=== PATIENT | male | born 1955 | race Caucasian/White ===

== ENCOUNTER 2020-02-20 12:42 | Outpatient (REF) | payer MEDICARE, SELFPAY | END 2020-02-20 12:43 | disposition home or self-care (01) | LOC: HO.LAB 12:42 | PROVIDERS: Referring Provider Physical Medicine & Rehabilitation; Visit Provider Anesthesiology | DX: Z86.14 Personal history of Methicillin resistant Staphylococcus aureus infection (principal) | CPT/HCPCS: 87040; 87086; 99202 ==

== ENCOUNTER 2020-02-26 11:07 | Outpatient (REF) | payer MEDICARE, SELFPAY ==
[2020-02-26 12:23] LABS: Alanine Aminotransferase 37 U/L (0-40); Albumin Level 4.3 g/dL (3.5-5.0); Alkaline Phosphatase 80 U/L (39-117); Anion Gap 17 (12-20); Aspartate Amino Transferase 31 U/L (5-37); Bilirubin Total 0.6 mg/dL (0.0-1.0); Blood Urea Nitrogen 16 mg/dL (9-16); Calcium 9.3 mg/dL (8.4-10.2); Carbon Dioxide 25 mmol/L (22-29); Chloride 102 mmol/L (96-108); Estimated Glomerular Filt Rate > 60; Glucose Random 202 mg/dL (60-115); Sodium 139 mmol/L (135-145); Total Protein 7.6 g/dL (6.5-8.0)
[2020-02-26 12:44] LABS: T4 Thyroxine 4.8 ug/dL (4.5-12.0); Thyroid Stimulating Hormone 0.83 uIU/mL (0.32-4.0)
[2020-02-26 12:55] LABS: Folate > 20.0 ng/mL (> or = 4.0); Vitamin B12 875 pg/mL (200-900)
== END 2020-02-26 11:08 | disposition home or self-care (01) ==
LOC: HO.LAB 11:07
PROVIDERS: PCP Internal Medicine; Visit Provider Psychiatry & Neurology Neurology
DX: G31.84 Mild cognitive impairment of uncertain or unknown etiology (principal)
CPT/HCPCS: 36415; 80053; 82607; 82746; 84436; 84443

== ENCOUNTER 2020-03-07 14:14 | Outpatient (REF) | payer MEDICARE, SELFPAY ==
--- NOTE | 2020-03-07 14:16 | MR_ITS ---
EXAMINATION: UNENHANCED MRI OF THE BRAIN CLINICAL INFORMATION: Microvascular disease, vascular dementia. COMPARISON: None TECHNIQUE: Routine unenhanced MRI of the brain. FINDINGS: Mild patchy T2 hyperintensities are present within the ventral hoda. Mild number scattered supratentorial subcortical and periventricular white matter T2 hyperintensities are noted. A 7 mm focal T2 hyperintensity with minimal central encephalomalacia is present in the right flanagan radiata abutting the superior margin of the right lentiform nucleus suspicious for a small chronic infarct. No disproportionate prominence of the temporal horns of the lateral ventricles is noted to specifically suggest prominent hippocampal volume loss. Prominence of the sylvian fissures is noted which qualitatively is out of proportion to the overall degree of sulcal prominence. Qualitative sulcal prominence in the frontal lobes is noted relative to the occipital and parietal lobes (for example, series 6 image 15). The cervicomedullary junction cerebellar tonsils are normal in configuration. No suspicious marrow abnormalities are identified. Normal flow-related signal intensity is identified in the major intrarenal vessels and dural sinuses. Mild mucosal thickening and retained secretions are noted within the frontal sinuses and scattered ethmoid air cells. Minimal mucosal thickening and/or retained secretions are noted within the left maxillary sinus. No mastoid effusions are visualized. MR/MR head/brain wo con IMPRESSION: 1. Qualitatively disproportional prominence of the frontoinsular subarachnoid spaces. This finding could represent findings related to generalized parenchymal volume loss of the brain though in the correct clinical setting this finding is suspicious for neurodegenerative changes related to frontotemporal dementia. No prominence of the temporal horns of the lateral ventricles to suggest underlying hippocampal degeneration in the setting of Alzheimer's type neurodegeneration changes. 2. Mild white matter chronic small vessel ischemic disease. Findings do not have the appearance of MRI changes typically seen in the setting of vascular dementia. Additionally, a focal subcentimeter chronic infarct is noted in the right flanagan radiata.
== END 2020-03-07 14:15 | disposition home or self-care (01) ==
LOC: HO.MRI 14:14
PROVIDERS: Visit Provider Psychiatry & Neurology Neurology
DX: I67.9 Cerebrovascular disease, unspecified (principal); F01.50 Vascular dementia, unspecified severity, without behavioral disturbance, psychotic disturbance, mood disturbance, and anxiety
CPT/HCPCS: 70551

== ENCOUNTER → 2020-03-20 16:21 | Outpatient (BNVA) | payer MEDICARE, SELFPAY | PROVIDERS: PCP Internal Medicine; Visit Provider Anesthesiology | DX: M96.1 Postlaminectomy syndrome, not elsewhere classified (principal); M54.5 Low back pain; M48.03 Spinal stenosis, cervicothoracic region; Z86.14 Personal history of Methicillin resistant Staphylococcus aureus infection | CPT/HCPCS: 99212 ==

== ENCOUNTER 2020-06-25 10:51 | Outpatient (REF) | payer MEDICARE, SELFPAY | END 2020-06-25 10:52 | disposition home or self-care (01) | LOC: CF 10:51 | PROVIDERS: Visit Provider Anesthesiology | DX: Z86.14 Personal history of Methicillin resistant Staphylococcus aureus infection (principal) | CPT/HCPCS: 87081 ==

== ENCOUNTER 2020-07-22 12:50 | Emergency (ER) | payer MEDICARE, SELFPAY | END 2020-07-22 14:00 | disposition left against medical advice (07) | PROVIDERS: Emergency Provider Emergency Medicine | DX: R61 Generalized hyperhidrosis (principal) ==

== ENCOUNTER → 2020-12-08 16:25 | Outpatient (BNVA) | payer MEDICARE, SELFPAY | PROVIDERS: Visit Provider Anesthesiology | DX: M96.1 Postlaminectomy syndrome, not elsewhere classified (principal); M54.50 Low back pain, unspecified; M48.03 Spinal stenosis, cervicothoracic region; Z86.14 Personal history of Methicillin resistant Staphylococcus aureus infection | CPT/HCPCS: Q3014 ==

== ENCOUNTER 2020-12-12 09:44 | Day surgery (SDC) | payer MEDICARE, SELFPAY ==
[2020-12-09 09:28] VITALS: BMI 27.9
--- NOTE | 2020-12-11 14:15 | P.CONAN_ITS ---
Documented by User: Laura Islas NP 12/11/20 14:18 HPI - Anesthesia Eval Consult details Narrative: 65yo M for Lumbar Spinal Cord Stimulation Trial Chronic opioids PMFSH Active Problems Active Problems: All Active Problems (Updated 12/09/20 @ 09:33 by Martina Morel, RN) Spinal stenosis of cervicothoracic region (Acute) Low back pain (Acute) Postlaminectomy syndrome (Acute) Hx MRSA infection (Acute) Past Medical History Medical History (Updated 12/09/20 @ 09:33 by Martina Morel, RN) Back pain COVID-19 vaccine series completed Diabetic neuropathy Essential hypertension Former smoker Frontotemporal lobar degeneration Gout Hepatomegaly History of alcohol abuse History of amputation of toe Hx MRSA infection Hyperlipemia Low back pain MCI (mild cognitive impairment) with memory loss On beta glenn at home Osteoarthritis Osteomyelitis of lumbar spine Postlaminectomy syndrome PVD (peripheral vascular disease) Spinal stenosis Spinal stenosis of cervicothoracic region Type 2 diabetes mellitus Ulcer of left foot Vitamin D deficiency Surgical History Surgical History (Updated 12/08/20 @ 14:23 by Martina Morel RN) History of back surgery History of lumbar laminectomy History of total left hip arthroplasty History of transmetatarsal amputation of left foot Social History Social History Are you a primary resident care aide to a significant other at home: No Do you presently have visiting nurse or other home services: No (had VNA for Rx Foot ulcer) Patient Tobacco Use Status: Former Tobacco user Quit Date: years ago Tobacco use type: Cigarette Use of substances other than those prescribed or required for medical reasons: No Substance Use Type Other:: Rx marijuana- 2 daily Substance Use Frequency: Daily Have you been hit, kicked, punched, or otherwise hurt by someone within the past year? If so, by whom?: No Are you DNR?: No Advance Directives: No Advance Directives Information Provided: No Advance Directives on File: No Recently lost weight without trying: Yes How much weight loss: 2-13 pounds Eating poorly because of decreased appetite: No Nutrition screen score: 3 Poor oral hygiene: No (Full dentures) Meds Allergies Allergy/AdvReac Type Severity Reaction Status Date / Time No Known Allergies Allergy Verified 12/08/20 16:28 Home Medications Medication Instructions Recorded Confirmed Last Taken Type atorvastatin 40 mg tablet 40 mg PO DAILY 02/20/20 12/08/20 Unknown History diazepam 10 mg tablet 10 mg PO BEDTIME PRN 02/20/20 12/08/20 Unknown History gabapentin 600 mg tablet 600 mg PO TID 02/20/20 12/08/20 Unknown History meloxicam 15 mg tablet 15 mg PO DAILY 02/20/20 12/08/20 Unknown History metoprolol succinate 50 mg 50 mg PO DAILY 02/20/20 12/08/20 Unknown History tablet,extended release 24 hr morphine 30 mg immediate release 30 mg PO 5XD PRN 02/20/20 12/08/20 Unknown History tablet morphine 30 mg tablet,extended 30 mg PO TID 02/20/20 12/08/20 Unknown History release amlodipine 5 mg tablet 1 tab PO DAILY 12/08/20 12/08/20 Unknown History bupropion HCl 150 mg tablet,12 hr 1 tab PO BID 12/08/20 12/08/20 Unknown History sustained-release donepezil 10 mg tablet 1 tab PO DAILY 12/08/20 12/08/20 Unknown History insulin aspart U-100 100 unit/mL SUBCUT DIRECTED 12/08/20 Unknown History subcutaneous solution (Novolog U-100 Insulin aspart) insulin degludec 200 unit/mL (3 12 unit SUBCUT BID 12/08/20 12/08/20 Unknown History mL) subcutaneous pen (Tresiba FlexTouch U-200 insulin) memantine 10 mg tablet 1 tab PO BID 12/08/20 12/08/20 Unknown History metformin 500 mg tablet,extended 1 tab PO DAILY 12/08/20 12/08/20 Unknown History release 24 hr Exam Exam Date and Time: December 11, 2020 1415 Height,Weight and Vital Signs: Height 5 ft 6 in Weight 78.471 kg Pertinent Lab Results Pertinent Lab Results: Laboratory Tests 02/26/20 11:20 Sodium 139 Potassium 5.0 Chloride 102 Carbon Dioxide 25 BUN 16 Creatinine 0.96 Estimated GFR > 60 Total Bilirubin 0.6 AST 31 ALT 37 Alkaline Phosphatase 80 Total Protein 7.6 Albumin 4.3 Assessment and Plan Assessment Anesthesia Assessment: Chart Reviewed Documented by User: Roberta North MD 12/12/20 10:51 COUNTS INCLUDE 234 BEDS AT THE [facility] Past Medical History Medical History (Updated 12/09/20 @ 09:33 by Martina Morel, RN) Back pain COVID-19 vaccine series completed Diabetic neuropathy Essential hypertension Former smoker Frontotemporal lobar degeneration Gout Hepatomegaly History of alcohol abuse History of amputation of toe Hx MRSA infection Hyperlipemia Low back pain MCI (mild cognitive impairment) with memory loss On beta glenn at home Osteoarthritis Osteomyelitis of lumbar spine Postlaminectomy syndrome PVD (peripheral vascular disease) Spinal stenosis Spinal stenosis of cervicothoracic region Type 2 diabetes mellitus Ulcer of left foot Vitamin D deficiency Surgical History Surgical History (Updated 12/08/20 @ 14:23 by Martina Morel, RN) History of back surgery History of lumbar laminectomy History of total left hip arthroplasty History of transmetatarsal amputation of left foot Social History Social History Are you a primary resident care aide to a significant other at home: No Do you presently have visiting nurse or other home services: No (had VNA for Rx Foot ulcer) Patient Tobacco Use Status: Former Tobacco user Quit Date: years ago Tobacco use type: Cigarette Use of substances other than those prescribed or required for medical reasons: No Substance Use Type Other:: Rx marijuana- 2 daily Substance Use Frequency: Daily Have you been hit, kicked, punched, or otherwise hurt by someone within the past year? If so, by whom?: No Are you DNR?: No Advance Directives: No Advance Directives Information Provided: No Advance Directives on File: No Recently lost weight without trying: Yes How much weight loss: 2-13 pounds Eating poorly because of decreased appetite: No Nutrition screen score: 3 Poor oral hygiene: No (Full dentures) Meds Allergies Allergy/AdvReac Type Severity Reaction Status Date / Time No Known Allergies Allergy Verified 12/08/20 16:28 Home Medications Medication Instructions Recorded Confirmed Last Taken Type atorvastatin 40 mg tablet 40 mg PO DAILY 02/20/20 12/08/20 Unknown History diazepam 10 mg tablet 10 mg PO BEDTIME PRN 02/20/20 12/08/20 Unknown History gabapentin 600 mg tablet 600 mg PO TID 02/20/20 12/08/20 Unknown History meloxicam 15 mg tablet 15 mg PO DAILY 02/20/20 12/08/20 Unknown History metoprolol succinate 50 mg 50 mg PO DAILY 02/20/20 12/08/20 Unknown History tablet,extended release 24 hr morphine 30 mg immediate release 30 mg PO 5XD PRN 02/20/20 12/08/20 Unknown Hi story tablet morphine 30 mg tablet,extended 30 mg PO TID 02/20/20 12/08/20 Unknown History release amlodipine 5 mg tablet 1 tab PO DAILY 12/08/20 12/08/20 Unknown History bupropion HCl 150 mg tablet,12 hr 1 tab PO BID 12/08/20 12/08/20 Unknown History sustained-release donepezil 10 mg tablet 1 tab PO DAILY 12/08/20 12/08/20 Unknown History insulin aspart U-100 100 unit/mL SUBCUT DIRECTED 12/08/20 Unknown History subcutaneous solution (Novolog U-100 Insulin aspart) insulin degludec 200 unit/mL (3 12 unit SUBCUT BID 12/08/20 12/08/20 Unknown History mL) subcutaneous pen (Tresiba FlexTouch U-200 insulin) memantine 10 mg tablet 1 tab PO BID 12/08/20 12/08/20 Unknown History metformin 500 mg tablet,extended 1 tab PO DAILY 12/08/20 12/08/20 Unknown History release 24 hr Exam Airway Mallampati Class: II TM Dist: >3cm Neck ROM: Full
[2020-12-12] VITALS (22 sets, daily range): BP systolic 111–162; BP diastolic 61–97; PULSE 47–65; RESP 10–18; TEMP 36.3–36.9; O2SAT 95–100
--- NOTE | ~2020-12-12 | FL_ITS ---
EXAMINATION: XR FLUOROSCOPY WITH IMAGES CLINICAL INFORMATION: Spinal stimulator. COMPARISON: None. TECHNIQUE: Fluoroscopy performed by Dr. Michael Manuel. Fluoroscopy time: 3.7 minutes DAP: 19.8 mGycm2 Images: 2 FINDINGS: 2 lateral images of thoracic spine reveal posterior epidural thoracic stimulator spanning three vertebral heights. There is mild ventral spondylosis in the lower dorsal spine. No visible fracture or lytic process seen. FL/FL guidance in OR IMPRESSION: Fluoroscopy was provided to Dr. Manuel for spinal stimulator insertion.
--- NOTE | ~2020-12-12 | CT_ITS ---
EXAMINATION: CT LUMBAR SPINE WITHOUT CONTRAST CLINICAL INFORMATION: Possible spinal cord injury following a epidural stimulator implant. COMPARISON: None TECHNIQUE: Axial 2 mm thin and reformatted 2 mm thin sagittal coronal images of thoracolumbar spine were obtained extending from mid thoracic spine to the mid sacral spine. This CT examination was performed using dose optimization techniques as appropriate, variously including the following: *Automated exposure control *Adjustment of mA and/or kV according to patient size (this includes techniques or standardized protocols for targeted exams where dose is matched to indication/reason for exam; i.e. extremities or head) *Use of iterative reconstruction technique DLP; 1281 mGy-cm FINDINGS: On sagittal reconstructed images the thoracic spine vertebral heights and alignment is preserved. The L2 and L3 vertebra appears fused. No acute fracture seen. There are degenerative disc changes virtually at every disc level with moderate ventral spondylosis in lower dorsal and lumbar spine. There is a solitary posterior epidural stimulator inserted at T11-T12 disc level with no hematoma or mass effect seen. There is no compromise of the spinal canal at the T11-T12 or the T12-L1 disc level. There is wide laminectomy L5 and L4 vertebra. At L2-L3 disc level there is a moderate hypertrophic bony extension or spur into the spinal canal resulting in mild to moderate canal stenosis. At L1-L2 disc level there is moderate canal stenosis from posterior osteophyte as well. The neural foramina are mildly narrowed bilaterally at these 2 disc levels. Rest of the disc levels are unremarkable without spinal canal stenosis. There is severe right and moderate left facet arthropathy at L5-S1 moderate L4-L5 disc levels. There is minimal bilateral atelectatic changes or scarring in both lower lobes. CT/CT lumbar spine wo con IMPRESSION: There is posterior epidural spinal stimulator insertion at the T11-T12 disc level with no surrounding hematoma or spinal canal stenosis seen. The thecal sac is capacious in the lower thoracic spine. There is a wide laminectomy L4-L5 vertebra with no significant major spinal canal stenosis. There is moderate spinal canal stenosis at the L2-L3 and 11-2 disc levels from posterior endplate spurring. There is diffuse L2 and L3 vertebra. No acute fracture seen except for moderate spondylosis and endplate changes throughout the spine. Results were discussed with Dr. Barreto at 5:00 PM.
--- NOTE | 2020-12-12 10:53 | P.CONAN_ITS ---
[facility] Active Problems Active Problems: All Active Problems (Updated 12/09/20 @ 09:33 by Martina juárez, RN) Spinal stenosis of cervicothoracic region (Acute) Low back pain (Acute) Postlaminectomy syndrome (Acute) Hx MRSA infection (Acute) Past Medical History Medical History (Updated 12/09/20 @ 09:33 by Martina Morel, RN) Back pain COVID-19 vaccine series completed Diabetic neuropathy Essential hypertension Former smoker Frontotemporal lobar degeneration Gout Hepatomegaly History of alcohol abuse History of amputation of toe Hx MRSA infection Hyperlipemia Low back pain MCI (mild cognitive impairment) with memory loss On beta glenn at home Osteoarthritis Osteomyelitis of lumbar spine Postlaminectomy syndrome PVD (peripheral vascular disease) Spinal stenosis Spinal stenosis of cervicothoracic region Type 2 diabetes mellitus Ulcer of left foot Vitamin D deficiency Surgical History Surgical History (Updated 12/08/20 @ 14:23 by Martina Morel, RN) History of back surgery History of lumbar laminectomy History of total left hip arthroplasty History of transmetatarsal amputation of left foot Social History Social History Are you a primary managed care coordinator to a significant other at home: No Do you presently have visiting nurse or other home services: No (had VNA for Rx Foot ulcer) Patient Tobacco Use Status: Former Tobacco user Quit Date: years ago Tobacco use type: Cigarette Use of substances other than those prescribed or required for medical reasons: No Substance Use Type Other:: Rx marijuana- 2 daily Substance Use Frequency: Daily Have you been hit, kicked, punched, or otherwise hurt by someone within the past year? If so, by whom?: No Are you DNR?: No Advance Directives: No Advance Directives Information Provided: No Advance Directives on File: No Recently lost weight without trying: Yes How much weight loss: 2-13 pounds Eating poorly because of decreased appetite: No Nutrition screen score: 3 Poor oral hygiene: No (Full dentures) Meds Allergies Allergy/AdvReac Type Severity Reaction Status Date / Time No Known Allergies Allergy Verified 12/08/20 16:28 Home Medications Medication Instructions Recorded Confirmed Last Taken Type atorvastatin 40 mg tablet 40 mg PO DAILY 02/20/20 12/08/20 Unknown History diazepam 10 mg tablet 10 mg PO BEDTIME PRN 02/20/20 12/08/20 Unknown History gabapentin 600 mg tablet 600 mg PO TID 02/20/20 12/08/20 Unknown History meloxicam 15 mg tablet 15 mg PO DAILY 02/20/20 12/08/20 Unknown History metoprolol succinate 50 mg 50 mg PO DAILY 02/20/20 12/08/20 Unknown History tablet,extended release 24 hr morphine 30 mg immediate release 30 mg PO 5XD PRN 02/20/20 12/08/20 Unknown History tablet morphine 30 mg tablet,extended 30 mg PO TID 02/20/20 12/08/20 Unknown History release amlodipine 5 mg tablet 1 tab PO DAILY 12/08/20 12/08/20 Unknown History bupropion HCl 150 mg tablet,12 hr 1 tab PO BID 12/08/20 12/08/20 Unknown History sustained-release donepezil 10 mg tablet 1 tab PO DAILY 12/08/20 12/08/20 Unknown History insulin aspart U-100 100 unit/mL SUBCUT DIRECTED 12/08/20 Unknown History subcutaneous solution (Novolog U-100 Insulin aspart) insulin degludec 200 unit/mL (3 12 unit SUBCUT BID 12/08/20 12/08/20 Unknown History mL) subcutaneous pen (Tresiba FlexTouch U-200 insulin) memantine 10 mg tablet 1 tab PO BID 12/08/20 12/08/20 Unknown History metformin 500 mg tablet,extended 1 tab PO DAILY 12/08/20 12/08/20 Unknown History release 24 hr Exam Exam Date and Time: December 12, 2020 1053 Height,Weight and Vital Signs: Height 5 ft 6 in Weight 78.471 kg Airway Mallampati Class: II TM Dist: >3cm Neck ROM: Full Denture: Upper and Lower
--- NOTE | 2020-12-12 11:03 | P.OP_ITS ---
Operative Note Operative Note Date of Service: 12/12/20 Narrative: Ga is very pleasant 65 years old gentleman who came today into the operating room for trial of spinal cord stimulator Nevro for the treatment of post laminectomy syndrome. Preoperatively patient received cefasolin 2 g a pproximately 30 minutes before the procedure. After obtaining informed consent the patient was brought to the operating room, HE was positioned prone on operating table, [employer] monitors were applied and patient was deeply sedated.? ?Time-out was performed delineating correct site, side, the nature of the procedure, patient's allergy, preoperative antibiotic if needed.? All operating room staff was participating in OR time-out procedure. Patient's entire back was prepped with DuraPrep twice and draped with full body fenestrated drape.? Sterilely draped C-arm was brought over operating field and sqare picture of T11-T12 L1 L2 vertebrae as were demonstrated on the screen. Significant extensive laminectomy starting from L2 all the way down to S1 vertebras without any hardware was noted on the screen. Therefore no lumbar spine intervertebral spaces were left to get an access with the epidural needle. FIRST? was concentrated on the T12-L1 epidural interspace.? The location of the projection of the right pedicle center of the? L2 vertebra was found on the skin using C-arm.? This location was injected with mixture of lidocaine 2% and Marcaine 0.5% 5 cc.? After that 11 blade was used to make a willie on the skin.? 10 cm 14 gauge? introducer epidural needle was inserted through the willie and advanced to? T12-L1 epidural interspace.? Unfortunately at this level the distance between the lamina of T12 above the interspace and lamina of L1 below the interspace was so small that I was not able to advance the needle under right angle to were the epidural space. The needle was redirected to T11-T12 epidural interspace. The advancement of the needle was performed on anterior posterior and lateral views.? Guitar wire and loss of resistance technique were used to locate epidural space.? When guitar wire was spread in the epidural fashion, epidural lead was inserted through the skin and it was advanced to middle of T8 position? SLIGHTLY left OF THE MIDLINE.? After that location of the projection of the LEFT pedicle center of the L2 vertebra was found on the skin using C-arm.? This location was injected with mixture of lidocaine 2% and Marcaine 0.5% 5 cc.? After that 11 blade was used to make a willie on the skin.? 10 cm 14 gauge curved introducer epidural needle was inserted through the willie and advanced to T11-T12 epidural interspace.? Advancem ent of the needle was performed on anterior posterior and lateral views.? On this side epidural is interspace had multiple spondylotic bone ridges navigating the needle around the bone I felt loss of resistance and when I removed the stylets there were no CSF in the needle coming out. Considering that this needle might end up in the epidural interspace I inserted epidural lead and started to advance it in the epidural space but on the lateral view the epidural lead was in the anterior part of the spinal canal. Penetration into the intrathecal space was suspected despite the fact that there were no CSF leak through the needle hub. Therefore the decision was made to remove the leads suspecting inadvertent advancement of the lead into the intrathecal space. The needle and the leads were removed- No CSF was observed coming from the needle The decision was made to try to perform trial of spinal cord stimulation on 1 lead only. Impedance was checked and was satisfactory .The right-sided needle was withdrawn, the stylette wires were removed from the epidural leads.? The anchoring devices were dislodged on the leads and advanced to the level of the skin.? The anchoring devices were sutured with two 0-0 silk sutures per each anchor to the skin of the patient. The central fixation screw of the anchor was rotated until three clicks were heard. The lead was connected to testing devic e.? Bacitracin ointment was applied to the entrance point of bilateral needles.? Sterile dressing was applied to the patient's back.? The testing device was also glued to the patient's back.?
[2020-12-12 11:21] LABS: Glucose, Whole Blood 94 mg/dL (60-115)
--- NOTE | 2020-12-12 12:27 | P.HPSUR_ITS ---
Pre-Procedural Eval Section A Date of Service: 12/12/20 Section B Chief Complaint: Post laminectomy Syndrome, Hx MRSA Infection Details of Present Illness: As above Relevant Family History (Specify if Yes): No Relevant Social History: None Present Medications: see Short Stay Collaborative assessment Medical History: No relevant PMH History of Previous Operations: Relevant previous surgery/procedure and date(s) Allergies: Allergies Allergy/AdvReac Type Severity Reaction Status Date / Time No Known Allergies Allergy Verified 12/08/20 16:28 Review of Systems Sugical H&P ROS: Negative: Constitution, Cardiovascular, Respiratory, Neur ological, Psychiatric, Hem-Onc, Allergic/Immunologic, Gastrointestinal, Genitourinary, Musculoskeletal, Integumentary, Endocrine and Eyes/Ears/Nose/Throat Exam Surgical H&P Exam: Normal: HEENT, Normal: Heart, Normal: Lungs, Normal: Extremities, Normal: Abdomen, Normal: Skin and Normal: Neurological Plan Diagnosis/Plan: Unchanged I have reviewed the history and physical and performed a pertinent physical examination on my patient. No changes have occurred unless specified.
--- NOTE | 2020-12-12 12:30 | PC.NURSE ---
pt hr in 50's while awake, when patient falls asleep HR noted to go as low as 40. Dr. North notified and Aware.
[2020-12-12] MEDS: ceFAZolin Sodium/Dextrose,Iso 2 GM/50 ML PIGGYBACK IV ×2 (12:48→20:10)
[2020-12-12] MEDS: oxyCODONE HCl Immed Release 5 MG TABLET 10 MG PO (14:41)
[2020-12-12] MEDS: fentaNYL citrate/PF 100 MCG/2 ML VIAL 50 MCG IVPUSH ×3 (14:50→15:56)
[2020-12-12] MEDS: dexAMETHasone sod phosphate/NS 12 MG/50 ML PIGGYBACK 200 MG IV (15:10)
[2020-12-12] MEDS: HYDROmorphone HCl 0.5 MG/0.5 ML SYRINGE IVPUSH ×3 (15:18→19:58)
[2020-12-12 16:04] LABS: Glucose, Whole Blood 106 mg/dL (60-115)
--- NOTE | 2020-12-12 17:16 | HO.PAINCONS ---
Review of Systems Constitutional: Constitutional: Reports no additional constitutional complaints Cardiovascular: Cardiovascular: Reports no additional cardiovascular complaints Respiratory: Respiratory: Reports no additional respiratory complaints Gastrointestinal: Gastrointestinal: Reports no additional gastrointestinal complaints Genitourinary: Genitourinary: Reports no additional male genitourinary complaints Musculoskeletal: Musculoskeletal: Reports as per HPI Integumentary/Breasts: Skin/Breast: Reports system reviewed and no additional complaints, except as docu Neurologic: Reports system reviewed and no additional complaints, except as documented Psychiatric: Psychiatric: Reports no additional psychiatric complaints COUNTS INCLUDE 234 BEDS AT THE [facility] Past Medical History Medical History (Updated 12/12/20 @ 17:50 by Michael Manuel MD) Back pain COVID-19 vaccine series completed Diabetic neuropathy Essential hypertension Former smoker Frontotemporal lobar degeneration Gout Hepatomegaly History of alcohol abuse History of amputation of toe Hx MRSA infection Hyperlipemia Low back pain MCI (mild cognitive impairment) with memory loss On beta glenn at home Osteoarthritis Osteomyelitis of lumbar spine Postlaminectomy syndrome PVD (peripheral vascular disease) Spinal stenosis Spinal stenosis of cervicothoracic region Type 2 diabetes mellitus Ulcer of left foot Vitamin D deficiency Surgical History (Updated 12/12/20 @ 17:50 by Michael Manuel MD) History of back surgery History of lumbar laminectomy History of total left hip arthroplasty History of transmetatarsal amputation of left foot S/P insertion of spinal cord stimulator Social History Social History Are you a primary health care specialist to a significant other at home: No Do you presently have visiting nurse or other home services: No (had VNA for Rx Foot ulcer) Patient Tobacco Use Status: Former Tobacco user Quit Date: years ago Tobacco use type: Cigarette Use of substances other than those prescribed or required for medical reasons: No Substance Use Type Other:: Rx marijuana- 2 daily Substance Use Frequency: Daily Have you been hit, kicked, punched, or otherwise hurt by someone within the past year? If so, by whom?: No Are you DNR?: No Advance Directives: No Advance Directives Information Provided: No Advance Directives on File: No Recently lost weight without trying: Yes How much weight loss: 2-13 pounds Eating poorly because of decreased appetite: No Nutrition screen score: 3 Poor oral hygiene: No (Full dentures) Physical Exam Vital Signs: Vital Signs: Last Vital Signs Temp 97.7 F 12/12/20 14:00 Pulse 56 12/12/20 15:45 Resp 18 12/12/20 15:56 BP 157/70 H 12/12/20 15:45 Pulse Ox 100 12/12/20 15:45 Body Mass Index 27.9 Back/Spine/Pelvis: Other: Results of postoperative physical exam dictated above. Assessment and Plan (1) Low back pain: Status: Acute (2) Postlaminectomy syndrome: Status: Acute (3) Spinal stenosis, lumbar: Status: Acute (4) S/P insertion of spinal cord stimulator: Status: Acute Assessment and Plan: The patient in PACU was treated with pulse dose of corticosteroid he was administered 12 mg of dexamethasone. He received another dose of antibiotic 2 g intravenously at 6:48 p.m.. He received pain management with fentanyl and IV Tylenol. He started to feel slightly better. I still feel necessary to admit him to the extended stay facility for further observation and pain treatment. 1. Patient needs to continue to receive Decadron 4 mg once a day. 2. Patient needs to receive cyanocobalamin once a day regular does intravenously. 3. Intravenous pain management needs to be continued, this patient is opioid dependent and in worse case scenario he might require IV FUNDRAISING COORDINATOR. 4. This patient is diabetic and continuous blood sugar checks and administration of the diabetic medications the patient was on prior to admission needs to be continued. If on steroids his blood sugar will start to climb up it needs to be covered with sliding scale short-acting insulin. 5. While in the hospital he should receive every 8 hours 2 g of cefazolin IV because he still has epidural lead going from the skin into his epidural space. 6. Patient needs to be a subject of neuro checks every nursing shift or every 8 hours.
[2020-12-12] MEDS: 0.9 % Sodium Chloride Flush 3 ML SYRINGE IVFLUSH (20:14)
[2020-12-12 21:12] LABS: Glucose, Whole Blood 383 mg/dL (60-115)
[2020-12-12] MEDS: HYDROmorphone HCl 1 MG/ML SYRINGE IVPUSH (21:19)
[2020-12-12] MEDS: Memantine HCl 10 MG TABLET PO (21:22)
[2020-12-12] MEDS: Gabapentin 600 MG TABLET PO (21:22)
[2020-12-12] MEDS: Insulin Lispro 100 UNIT/ML 3 ML VIAL SUBCUT (21:38)
[2020-12-12] MEDS: Morphine Sulfate ER 30 MG TABLET.ER PO (22:33)
[2020-12-12 22:42] LABS: Glucose, Whole Blood 424 mg/dL (60-115)
[2020-12-12] MEDS: Morphine Sulfate Immed Release 15 MG TABLET 30 MG PO (23:38)
[2020-12-13] VITALS (9 sets, daily range): BP systolic 111–147; BP diastolic 63–80; PULSE 60–71; RESP 18; TEMP 36.5–37.1; O2SAT 96–98
[2020-12-13 00:21] LABS: Glucose, Whole Blood 363 mg/dL (60-115)
[2020-12-13] MEDS: diazePAM 10 MG TABLET PO (00:34)
[2020-12-13] MEDS: Insulin Lispro 100 UNIT/ML 3 ML VIAL 10 UNIT SUBCUT (01:01)
[2020-12-13] MEDS: HYDROmorphone HCl 1 MG/ML SYRINGE IVPUSH ×3 (03:51→12:27)
[2020-12-13] MEDS: ceFAZolin Sodium/Dextrose,Iso 2 GM/50 ML PIGGYBACK IV ×3 (03:52→19:44)
[2020-12-13 07:11] LABS: Glucose, Whole Blood 226 mg/dL (60-115)
--- NOTE | 2020-12-13 07:40 | P.HPHOSP_ITS ---
History of Present Illness Date of Service: 12/12/20 65-year-old male status post insertion of spinal stimulator; postprocedure pain difficult to control. Admitted extended stay for same. No other acute complaints Review of Systems Review of Systems: Denies chest pain Denies shortness of breath Denies nausea vomiting diarrhea PMFSH Medical History Back pain COVID-19 vaccine series completed Diabetic neuropathy Essential hypertension Former smoker Frontotemporal lobar degeneration Gout Hepatomegaly History of alcohol abuse History of amputation of toe Hx MRSA infection Hyperlipemia Low back pain MCI (mild cognitive impairment) with memory loss On beta glenn at home Osteoarthritis Osteomyelitis of lumbar spine Postlaminectomy syndrome PVD (peripheral vascular disease) Spinal stenosis Spinal stenosis of cervicothoracic region Type 2 diabetes mellitus Ulcer of left foot Vitamin D deficiency Pertinent family history: . Surgical History History of back surgery History of lumbar laminectomy History of total left hip arthroplasty History of transmetatarsal amputation of left foot S/P insertion of spinal cord stimulator Social History Are you a primary rn critical care to a significant other at home: No Do you presently have visiting nurse or other home services: No (had [facility] for Rx Foot ulcer) Patient Tobacco Use Status: Former Tobacco user Quit Date: years ago Tobacco use type: Cigarette Use of substances other than those prescribed or required for medical reasons: No Substance Use Type Other:: Rx marijuana- 2 daily Substance Use Frequency: Daily Currently Displaying Signs/Symptoms of Drug Intoxication Withdrawal: No Have you been hit, kicked, punched, or otherwise hurt by someone within the past year? If so, by whom?: No Are you DNR?: No Advance Directives: No Advance Directives Information Provided: No Advance Directives on File: No Do you have thoughts of harming others: None Do you have a plan to hurt others: No Plan Recently lost weight without trying: Yes How much weight loss: 2-13 pounds Eating poorly because of decreased appetite: No Nutrition screen score: 3 Poor oral hygiene: No (Full dentures) Meds Allergies Allergy/AdvReac Type Severity Reaction Status Date / Time No Known Allergies Allergy Verified 12/08/20 16:28 Active Medications: Current Medications Acetaminophen (Acetaminophen 325 Mg Tablet) 650 mg PO Q6H PRN PRN Reason: Pain, Mild (Pain Scale 1-3) Amlodipine Besylate (Amlodipine Besylate 5 Mg Tablet) 5 mg PO DAILY REPLACED BY [facility]; Protocol Atorvastatin Calcium (Atorvastatin Calcium 40 Mg Tablet) 40 mg PO DAILY REPLACED BY [facility] Bupropion HCl (Bupropion Hcl Xl 300 Mg Tab.Er.24h) 300 mg PO DAILY REPLACED BY [facility] Diazepam (Diazepam 10 Mg Tablet) 10 mg PO BEDTIME PRN PRN Reason: muscle spasm Last Admin: 12/13/20 00:34 Dose: 10 mg Documented by: Donepezil HCl (Donepezil Hcl 10 Mg Tablet) 10 mg PO DAILY REPLACED BY [facility] Fentanyl (Fentanyl Citrate/Pf 100 Mcg/2 Ml Vial) 50 mcg IVPUSH Q5M PRN; Protocol PRN Reason: Pain, Severe (Pain Scale 7-10) Last Admin: 12/12/20 15:56 Dose: 50 mcg Documented by: Gabapentin (Gabapentin 600 Mg Tablet) 600 mg PO TID REPLACED BY [facility] Last Admin: 12/12/20 21:22 Dose: 600 mg Documented by: Hydromorphone HCl (Hydromorphone Hcl 0.5 Mg/0.5 Ml Syringe) 0.5 mg IVPUSH Q5M PRN; Protocol PRN Reason: Pain, Severe (Pain Scale 7-10) Last Admin: 12/12/20 19:58 Dose: 0.5 mg Documented by: Hydromorphone HCl (Hydromorphone Hcl 1 Mg/Ml Syringe) 1 mg IVPUSH Q4H PRN; Protocol PRN Reason: Pain, Severe (Pain Scale 7-10) Last Admin: 12/12/20 21:19 Dose: 1 mg Documented by: Cefazolin Sodium/Dextrose (Ancef) 2 gm in 50 mls @ 100 mls/hr IV Q8H REPLACED BY [facility] Last Infusion: 12/13/20 05:23 Dose: Infused Documented by: Insulin Human Lispro (Insulin Lispro 100 Unit/Ml 3 Ml Vial) 0 unit SUBCUT QIDACHS REPLACED BY [facility]; Protocol Last Admin: 12/12/20 21:38 Dose: 10 unit Documented by: Lorazepam (Lorazepam 0.5 Mg Tablet) 0.5 mg PO DAILY PRN PRN Reason: Anxiety Memantine (Memantine Hcl 10 Mg Tablet) 10 mg PO BID REPLACED BY [facility] Last Admin: 12/12/20 21:22 Dose: 10 mg Documented by: Metoprolol Succinate (Metoprolol Succinate Er 50 Mg Tab.Er.24h) 50 mg PO DAILY REPLACED BY [facility]; Protocol Morphine Sulfate (Morphine Sulfate Immed Release 15 Mg Tablet) 30 mg PO 5XD PRN PRN Reason: Breakthrough Pain Last Admin: 12/12/20 23:38 Dose: 30 mg Documented by: Morphine Sulfate (Morphine Sulfate Er 30 Mg Tablet.Er) 30 mg PO TID REPLACED BY [facility] Last Admin: 12/12/20 22:33 Dose: 30 mg Documented by: Sodium Chloride (0.9 % Sodium Chloride Flush 3 Ml Syringe) [facility] Last Admin: 12/12/20 20:14 Dose: 3 ml Documented by: Home Medications Medication Instructions Recorded Confirmed Last Taken Type atorvastatin 40 mg tablet 40 mg PO DAILY 02/20/20 12/08/20 Unknown History diazepam 10 mg tablet 10 mg PO BEDTIME PRN 02/20/20 12/08/20 Unknown History gabapentin 600 mg tablet 600 mg PO TID 02/20/20 12/08/20 12/12/20 History meloxicam 15 mg tablet 15 mg PO DAILY 02/20/20 12/08/20 Unknown History metoprolol succinate 50 mg 50 mg PO DAILY 02/20/20 12/08/20 12/12/20 History tablet,extended release 24 hr morphine 30 mg immediate release 30 mg PO 5XD PRN 02/20/20 12/08/20 Unknown History tablet morphine 30 mg tablet,extended 30 mg PO TID 02/20/20 12/08/20 12/12/20 History release amlodipine 5 mg tablet 1 tab PO DAILY 12/08/20 12/08/20 12/12/20 History bupropion HCl 150 mg tablet,12 hr 1 tab PO BID 12/08/20 12/08/20 Unknown History sustained-release donepezil 10 mg tablet 1 tab PO DAILY 12/08/20 12/08/20 Unknown History insulin aspart U-100 100 unit/mL See Rx Instructions .ROUTE .COMPLEX 12/08/20 12/12/20 Unknown History subcutaneous solution (Novolog U-100 Insulin aspart) insulin degludec 200 unit/mL (3 12 unit SUBCUT BID 12/08/20 12/08/20 Unknown History mL) subcutaneous pen (Tresiba FlexTouch U-200 insulin) memantine 10 mg tablet 1 tab PO BID 12/08/20 12/08/20 Unknown History metformin 500 mg tablet,extended 1 tab PO DAILY 12/08/20 12/08/20 Unknown History release 24 hr apixaban 5 mg tablet 5 mg PO BID 12/12/20 12/12/20 Unknown History folic acid 1 mg tablet 1 mg PO DAILY 12/12/20 12/12/20 Unknown History lorazepam 0.5 mg tablet 0.5 mg PO DAILY PRN 12/12/20 12/12/20 Unknown History Physical Exam Vital Signs and Narrative: Vital Signs: Last Vital Signs Temp 98.8 F 12/13/20 07:32 Pulse 71 12/13/20 07:32 Resp 18 12/13/20 07:32 BP 147/79 H 12/13/20 07:32 Pulse Ox 97 12/13/20 07:32 Body Mass Index 27.9 Const: Other: Awake alert oriented x3. Fairly comfortable on current regimen; current pain 3 to 4/10 HENMT: Other: Oropharynx moist clear Resp: Other: Clear to auscultation bilaterally Cardio: Other: No S4; positive S1-S2; no S3 murmurs or gallops GI: Other: Soft nontender nondistended with normoactive bowel sounds. There are no peritoneal signs Neuro: Other: Cranial nerves 2-12 are grossly intact as tested. Motor is 5/5 all extremities. Sensation is intact. Cognition appropriate Extrem: Other: No edema bilaterally Results Labs Labs: Laboratory Results - last 24 hr 12/12/20 12/12/20 12/12/20 11:06 16:00 21:08 POC Glucose 94 106 383 H* 12/12/20 12/13/20 12/13/20 22:38 00:14 07:05 POC Glucose 424 H* 363 H* 226 H Imaging Radiologist's Impressions: Impressions Lumbar Spine CT 12/12/20 16:30 IMPRESSION: There is posterior epidural spinal stimulator insertion at the T11-T12 disc level with no surrounding hematoma or spinal canal stenosis seen. The thecal sac is capacious in the lower thoracic spine. There is a wide laminectomy L4-L5 vertebra with no significant major spinal canal stenosis. There is moderate spinal canal stenosis at the L2-L3 and 11-2 disc levels from posterior endplate spurring. There is diffuse L2 and L3 vertebra. No acute fracture seen except for moderate spondylosis and endplate changes throughout the spine. Results were discussed with Dr. Barreto at 5:00 PM. Assessment and Plan (1) S/P insertion of spinal cord stimulator: Status: Acute (2) Hx MRSA infection: Status: Acute (3) DMII (diabetes mellitus, type 2): Status: Acute 65-year-old male admitted extended stay after spinal stimulator placement secondary to pain control. No other acute issues 1. Radicular pain CT of lumbar spine failed to show any acute pathology post procedure; patient will be admitted and kept on outpatient morphine dosing. Pulse dose Dilaudid will be given overnight and re-evaluated in the a.m. IV Decadron 12 mg given in PACU; will continue 4 mg IV daily until discharge followed by oral taper 2. History of MRSA Empiric Kefzol 2 g IV q.8 followed by oral dosing upon discharge 3. Diabetes type 2 requiring insulin Continue outpatient dosing and cover with sliding scale 4. PVD Will hold meloxicam/apixaban at this time. Restart upon discharge or as dictated by Dr. Manuel Full code/pneumatic boots Quality Stroke Does the patient have a stroke diagnosis?: No VTE Prior VTE?: No VTE Risk Level:: Medical - moderate - high VTE Device Contraindication: N/A - Device Ordered VTE Drug Contraindication: Treatment Not Indicated
[2020-12-13] MEDS: Insulin Lispro 100 UNIT/ML 3 ML VIAL SUBCUT ×4 (07:58→21:18)
[2020-12-13] MEDS: 0.9 % Sodium Chloride Flush 3 ML SYRINGE IVFLUSH ×2 (07:59→17:09)
[2020-12-13] MEDS: Donepezil HCl 10 MG TABLET PO (07:59)
[2020-12-13] MEDS: buPROPion HCl XL 300 MG TAB.ER.24H PO (08:00)
[2020-12-13] MEDS: Metoprolol Succinate ER 50 MG TAB.ER.24H PO (08:00)
[2020-12-13] MEDS: amLODIPine Besylate 5 MG TABLET PO (08:00)
[2020-12-13] MEDS: Memantine HCl 10 MG TABLET PO ×2 (08:01→21:18)
[2020-12-13] MEDS: Gabapentin 600 MG TABLET PO ×3 (08:01→21:18)
[2020-12-13] MEDS: Atorvastatin Calcium 40 MG TABLET PO (08:01)
[2020-12-13] MEDS: dexAMETHasone sod phosphate 4 MG/ML VIAL IVPUSH (09:05)
[2020-12-13] MEDS: Morphine Sulfate ER 30 MG TABLET.ER PO ×3 (09:05→21:18)
[2020-12-13] MEDS: Morphine Sulfate Immed Release 15 MG TABLET 30 MG PO (09:36)
[2020-12-13 11:22] LABS: Glucose, Whole Blood 262 mg/dL (60-115)
--- NOTE | 2020-12-13 11:49 | MHC.CM.PN ---
Addendum entered by Cara Fong 12/13/20 11:54: PTS PCP IS DARIO MOHAN AT [facility] IN [place] PT REPORTS HE HAS A HCP AT HOME NAMING HIS , HIREN, HIS AGENT. Original Note: CM MET WITH PT AND HIREN WHO WAS AT BEDSIDE. PT REPORTS IT IS JUST HIM AND HIS AT HOME AND HE IS INDEPENDENT WITH ADLS PT REPORTS HE HAS A LOT OF DME AT HOME FROM HIS FATHER HOWEVER HE ONLY USES A CANE PRN AND VERY RARELY A WALKER, ALTHOUGH HE FEELS HE WILL BE USING IT MORE UPON [place]. PT REPORTS HE DOES NOT HAVE ANY HOME SERVICES AT THIS TIME, HOWEVER HE WAS JUST DISCHARGED FROM [facility] A WEEK OR TWO AGO. HE HOPES TO HAVE THE SAME AGENCY AT [place] BUT WOULD ALSO BE AGREEABLE TO [facility] CURRENT DC PLAN IS HOME WITH NO SERVICES VS HOME WITH [facility] TO TRANSPORT
--- NOTE | 2020-12-13 13:07 | HO.PM.IMPN ---
Subjective Subjective Date of Service: 12/13/20 Interval History: Pain control fair overnight with oral morphine and pulse dose Dilaudid. Dr. Manuel in this a.m. Review of Systems Denies chest pain Denies shortness of breath Denies nausea vomiting diarrhea Physical Exam Vital Signs: Vital Signs: Last Vital Signs Temp 98.8 F 12/13/20 07:32 Pulse 71 12/13/20 08:00 Resp 18 12/13/20 07:32 BP 147/79 H 12/13/20 08:00 Pulse Ox 97 12/13/20 07:32 Body Mass Index 27.9 Const: Other: Awake alert oriented x3. Pain control inadequate per patient HENMT: Other: Oropharynx moist clear Resp: Other: Clear to auscultation bilaterally Cardio: Other: No S4; positive S1-S2; no S3 murmurs or gallops GI: Other: Soft nontender nondistended with normoactive bowel sounds. There are no peritoneal signs Neuro: Other: Cranial nerves 2-12 are grossly intact as tested. Motor is 5/5 all extremities. Sensation is intact. Cognition appropriate Extrem: Other: No edema bilaterally Objective Data Active Medications Acetaminophen (Acetaminophen 325 Mg Tablet) 650 mg PO Q6H PRN PRN Reason: Pain, Mild (Pain Scale 1-3) Amlodipine Besylate (Amlodipine Besylate 5 Mg Tablet) 5 mg PO DAILY [facility]; Protocol Last Admin: 12/13/20 08:00 Dose: 5 mg Documented by: BARRY Atorvastatin Calcium (Atorvastatin Calcium 40 Mg Tablet) 40 mg PO DAILY [facility] Last Admin: 12/13/20 08:01 Dose: 40 mg Documented by: BARRY Bupropion HCl (Bupropion Hcl Xl 300 Mg Tab.Er.24h) 300 mg PO DAILY [facility] Last Admin: 12/13/20 08:00 Dose: 300 mg Documented by: BARRY Dexamethasone Sodium Phosphate (Dexamethasone Sod Phosphate 4 Mg/Ml Vial) 4 mg IVPUSH DAILY [facility] Last Admin: 12/13/20 09:05 Dose: 4 mg Documented by: BARRY Diazepam (Diazepam 10 Mg Tablet) 10 mg PO BEDTIME PRN PRN Reason: muscle spasm Last Admin: 12/13/20 00:34 Dose: 10 mg Documented by: MABLE Donepezil HCl (Donepezil Hcl 10 Mg Tablet) 10 mg PO DAILY [facility] Last Admin: 12/13/20 07:59 Dose: 10 mg Documented by: BARRY Gabapentin (Gabapentin 600 Mg Tablet) 600 mg PO TID [facility] Last Admin: 12/13/20 08:01 Dose: 600 mg Documented by: BARRY Hydromorphone HCl (Hydromorphone Hcl 1 Mg/Ml Syringe) 1 mg IVPUSH Q4H PRN; Protocol PRN Reason: Pain, Severe (Pain Scale 7-10) Last Admin: 12/13/20 12:27 Dose: 1 mg Documented by: BARRY Cefazolin Sodium/Dextrose (Ancef) 2 gm in 50 mls @ 100 mls/hr IV Q8H [facility] Last Infusion: 12/13/20 05:23 Dose: 0 mls/hr Documented by: MABLE Hydromorphone HCl (Dilaudid) 10 mg in 50 mls @ 0 mls/hr IV .Q0M [facility]; Protocol Insulin Human Lispro (Insulin Lispro 100 Unit/Ml 3 Ml Vial) 0 unit SUBCUT QIDACHS [facility]; Protocol Last Admin: 12/13/20 12:25 Dose: 6 unit Documented by: BARRY Lorazepam (Lorazepam 0.5 Mg Tablet) 0.5 mg PO DAILY PRN PRN Reason: Anxiety Memantine (Memantine Hcl 10 Mg Tablet) 10 mg PO BID [facility] Last Admin: 12/13/20 08:01 Dose: 10 mg Documented by: BARRY Metoprolol Succinate (Metoprolol Succinate Er 50 Mg Tab.Er.24h) 50 mg PO DAILY [facility]; Protocol Last Admin: 12/13/20 08:00 Dose: 50 mg Documented by: BARRY Morphine Sulfate (Morphine Sulfate Er 30 Mg Tablet.Er) 30 mg PO TID [facility] Last Admin: 12/13/20 09:05 Dose: 30 mg Documented by: BARRY Naloxone HCl (Naloxone Hcl 0.4 Mg/Ml Vial) 0.2 mg IVPUSH Q2M PRN PRN Reason: Excessive sedation or RR < 8 Sodium Chloride (0.9 % Sodium Chloride Flush 3 Ml Syringe) 3 ml IVFLUSH QSHIFT [facility] Last Admin: 12/13/20 07:59 Dose: 3 ml Documented by: [email or web address] Labs Labs: Laboratory Results - last 24 hr 12/12/20 12/12/20 12/12/20 16:00 21:08 22:38 POC Glucose 106 383 H* 424 H* 12/13/20 12/13/20 12/13/20 00:14 07:05 11:06 POC Glucose 363 H* 226 H 262 H Assessment and Plan (1) S/P insertion of spinal cord stimulator: Status: Acute (2) Hx MRSA infection: Status: Acute Assessment and Plan: 65-year-old male admitted extended stay after spinal stimulator placement secondary to pain control. No other acute issues 1. Radicular pain CT of lumbar spine failed to show any acute pathology post procedure; patient will be admitted and kept on outpatient morphine dosing. Dr. Manuel in to see patient; recommending Dilaudid drip. Discussed with pharmacy will implement and keep oral dosing. Titrate drip as tolerated continue Decadron 2. History of MRSA Empiric Kefzol 2 g IV q.8 followed by oral dosing upon discharge 3. Diabetes type 2 requiring insulin Continue outpatient dosing and cover with sliding scale 4. PVD Will hold meloxicam/apixaban at this time. Restart upon discharge or as dictated by Dr. Manuel Full code/pneumatic boots Quality Stroke Does the patient have a stroke diagnosis?: No VTE Prior VTE?: No VTE Risk Level:: Medical - moderate - high VTE Device Contraindication: N/A - Device Ordered VTE Drug Contraindication: Treatment Not Indicated
--- NOTE | 2020-12-13 14:02 | HO.POSTANES ---
Post Anesthesia Evaluation Post Anesthesia Evaluation Vital Signs: Vital Signs Temp Pulse Resp BP Pulse Ox 12/13/20 08:00 71 147/79 H 12/13/20 07:32 98.8 F 71 18 147/79 H 97 12/13/20 03:49 97.9 F 60 18 139/74 98 Anesthesia: Monitored Mental Status: Awake Pain Control: Satisfactory Nausea/Vomiting: None Hydration: Adequate Anesthesia-Related Issues: No Anes. Related Issues
[2020-12-13 16:21] LABS: Glucose, Whole Blood 263 mg/dL (60-115)
[2020-12-13] MEDS: HYDROmorphone HCl/NS 10 MG/50 ML PIGGYBACK 2.5 MG IV (17:02)
--- NOTE | 2020-12-13 17:12 | PC.NURSE ---
Witnessed administration of EIGHT SECTION BLOWER Dilaudid concentration 0.2 mg/1 ml,EIGHT SECTION BLOWER programmed to deliver 0.5 mg bolus q 30 min, 2 boluses an hour,unable to document accurately ,system does not have a space to document bolus only,pharmacy was notified but no solution to this issue,witnessed for RN Anna Carrera
--- NOTE | 2020-12-13 17:32 | PC.NURSE ---
brand inspector pump started with second RN Marya Duron ,witnessing the initiation of pump programing. Dilauded o.5 mg bolus only with interval 330 min , # 2 boluses in 1 hr . On the emar the only option for infusion is continuous infusion. Pharmacy is aware about that issue and was not able to fix it at this time .
[2020-12-13 20:17] LABS: Glucose, Whole Blood 259 mg/dL (60-115)
--- NOTE | 2020-12-13 20:38 | PC.NURSE ---
[employer] teacher pump: total intake at this time Dilaudid 3 mg / 15 ml . boluses demanded 7 , boluses received 6. Pain level # 4-5 per pt report
--- NOTE | 2020-12-13 22:45 | PC.NURSE ---
animal handler pump: dilauded 0.5 mg bolus only ,# 2 boluses per hr . Total intake till now 5 mg /25ml ; 10 boluses received ,13 requested
[2020-12-14] VITALS (16 sets, daily range): BP systolic 111–149; BP diastolic 60–94; PULSE 52–87; RESP 16–20; TEMP 36.4–37.1; O2SAT 96–98
[2020-12-14] MEDS: ceFAZolin Sodium/Dextrose,Iso 2 GM/50 ML PIGGYBACK IV ×3 (04:46→20:53)
[2020-12-14] MEDS: HYDROmorphone HCl/NS 10 MG/50 ML PIGGYBACK 2.5 MG IV ×2 (05:57→18:11)
[2020-12-14] MEDS: 0.9 % Sodium Chloride Flush 3 ML SYRINGE IVFLUSH (10:56)
[2020-12-14] MEDS: Morphine Sulfate ER 30 MG TABLET.ER PO ×3 (10:56→20:53)
[2020-12-14] MEDS: Atorvastatin Calcium 40 MG TABLET PO (10:57)
[2020-12-14] MEDS: Memantine HCl 10 MG TABLET PO ×2 (10:57→20:54)
[2020-12-14] MEDS: Donepezil HCl 10 MG TABLET PO (10:57)
[2020-12-14] MEDS: Gabapentin 600 MG TABLET PO (10:57)
[2020-12-14] MEDS: amLODIPine Besylate 5 MG TABLET PO (10:58)
[2020-12-14] MEDS: dexAMETHasone sod phosphate 4 MG/ML VIAL IVPUSH (10:58)
[2020-12-14] MEDS: buPROPion HCl XL 300 MG TAB.ER.24H PO (10:58)
[2020-12-14] MEDS: Insulin Lispro 100 UNIT/ML 3 ML VIAL SUBCUT ×3 (12:01→20:54)
[2020-12-14 12:12] LABS: Glucose, Whole Blood 261 mg/dL (60-115)
--- NOTE | 2020-12-14 12:32 | HO.PM.IMPN ---
Subjective Subjective Date of Service: 12/14/20 Interval History: Pain control fair overnight with oral morphine(ER)and pulse dose Dilaudid. States current regimen is not controlling pain Review of Systems Denies chest pain Denies shortness of breath Denies nausea vomiting diarrhea Physical Exam Vital Signs: Vital Signs: Last Vital Signs Temp 98.7 F 12/14/20 11:44 Pulse 60 12/14/20 11:44 Resp 20 12/14/20 11:44 BP 142/94 H 12/14/20 11:44 Pulse Ox 96 12/14/20 11:44 Body Mass Index 27.9 Const: Other: Awake alert oriented x3. Appears comfortable HENMT: Other: Oropharynx moist clear Resp: Other: Clear to auscultation bilaterally Cardio: Other: No S4; positive S1-S2; no S3 murmurs or gallops GI: Other: Soft nontender nondistended with normoactive bowel sounds. There are no peritoneal signs Neuro: Other: Cranial nerves 2-12 are grossly intact as tested. Motor is 5/5 all extremities. Sensation is intact. Cognition appropriate Extrem: Other: No edema bilaterally. Left TMA Objective Data Active Medications Acetaminophen (Acetaminophen 325 Mg Tablet) 650 mg PO Q6H PRN PRN Reason: Pain, Mild (Pain Scale 1-3) Amlodipine Besylate (Amlodipine Besylate 5 Mg Tablet) 5 mg PO DAILY [facility]; Protocol Last Admin: 12/14/20 10:58 Dose: 5 mg Documented by: MALIKA Atorvastatin Calcium (Atorvastatin Calcium 40 Mg Tablet) 40 mg PO DAILY [facility] Last Admin: 12/14/20 10:57 Dose: 40 mg Documented by: MALIKA Bupropion HCl (Bupropion Hcl Xl 300 Mg Tab.Er.24h) 300 mg PO DAILY [facility] Last Admin: 12/14/20 10:58 Dose: 300 mg Documented by: MALIKA Dexamethasone Sodium Phosphate (Dexamethasone Sod Phosphate 4 Mg/Ml Vial) 4 mg IVPUSH DAILY [facility] Last Admin: 12/14/20 10:58 Dose: 4 mg Documented by: MALIKA Diazepam (Diazepam 10 Mg Tablet) 10 mg PO BEDTIME PRN PRN Reason: muscle spasm Last Admin: 12/13/20 00:34 Dose: 10 mg Documented by: MABLE Donepezil HCl (Donepezil Hcl 10 Mg Tablet) 10 mg PO DAILY [facility] Last Admin: 12/14/20 10:57 Dose: 10 mg Documented by: MALIKA Gabapentin (Gabapentin 300 Mg Capsule) 900 mg PO TID [facility] Hydromorphone HCl (Hydromorphone Hcl 1 Mg/Ml Syringe) 1 mg IVPUSH Q4H PRN; Protocol PRN Reason: Pain, Severe (Pain Scale 7-10) Last Admin: 12/13/20 12:27 Dose: 1 mg Documented by: BARRY Cefazolin Sodium/Dextrose (Ancef) 2 gm in 50 mls @ 100 mls/hr IV Q8H [facility] Last Infusion: 12/14/20 12:31 Dose: 0 mls/hr Documented by: MALIKA Hydromorphone HCl (Dilaudid) 10 mg in 50 mls @ 0 mls/hr IV .Q0M [facility]; Protocol Last Admin: 12/14/20 05:57 Dose: 0.5 mg/hr, 2.5 mls/hr Documented by: BELLA Insulin Human Lispro (Insulin Lispro 100 Unit/Ml 3 Ml Vial) 0 unit SUBCUT QIDACHS [facility]; Protocol Last Admin: 12/14/20 12:01 Dose: 6 unit Documented by: MALIKA Lorazepam (Lorazepam 0.5 Mg Tablet) 0.5 mg PO DAILY PRN PRN Reason: Anxiety Memantine (Memantine Hcl 10 Mg Tablet) 10 mg PO BID [facility] Last Admin: 12/14/20 10:57 Dose: 10 mg Documented by: MALIKA Metoprolol Succinate (Metoprolol Succinate Er 50 Mg Tab.Er.24h) 50 mg PO DAILY [facility]; Protocol Last Admin: 12/14/20 11:03 Dose: Not Given Documented by: MALIKA Non-Admin Reason: HR <60 Morphine Sulfate (Morphine Sulfate Er 30 Mg Tablet.Er) 30 mg PO TID [facility] Last Admin: 12/14/20 10:56 Dose: 30 mg Documented by: MALIKA Naloxone HCl (Naloxone Hcl 0.4 Mg/Ml Vial) 0.2 mg IVPUSH Q2M PRN PRN Reason: Excessive sedation or RR < 8 Sodium Chloride (0.9 % Sodium Chloride Flush 3 Ml Syringe) 3 ml IVFLUSH QSHIFT [facility] Last Admin: 12/14/20 10:56 Dose: 3 ml Documented by: MALIKA Labs Labs: Laboratory Results - last 24 hr 12/13/20 12/13/20 12/14/20 16:07 20:08 11:53 POC Glucose 263 H 259 H 261 H Assessment and Plan (1) S/P insertion of spinal cord stimulator: Status: Acute (2) DMII (diabetes mellitus, type 2): Status: Acute Assessment and Plan: 65-year-old male admitted extended stay after spinal stimulator placement secondary to pain control. Pain control inadequate per pt. No other acute issues 1. Radicular pain: Poorly controlled on Dilaudid 0.5 IVP q30min/MSER/Gabapentin Dicussed with Dr Manuel; Will increase Gabapentin to 900 TID; Add back MSIR as per home dosing. 2. History of MRSA Empiric Kefzol 2 g IV q.8 followed by oral dosing upon discharge 3. Diabetes type 2 requiring insulin Continue outpatient dosing and cover with sliding scale 4. PVD Will hold meloxicam/apixaban at this time. Restart upon discharge or as dictated by Dr. Manuel Full code/pneumatic boots Quality Stroke Does the patient have a stroke diagnosis?: No VTE Prior VTE?: No VTE Risk Level:: Medical - moderate - high VTE Device Contraindication: N/A - Device Ordered VTE Drug Contraindication: Treatment Not Indicated
--- NOTE | 2020-12-14 12:55 | PC.NURSE ---
Pt OOB to ambulate about 50 feet in [place]. Ambulating with walker and a steady but slow gait. Pt states that this was great in helping alleviate some of his pain. He is now resting in a recliner.
--- NOTE | 2020-12-14 14:36 | MHC.CM.PN ---
IMM DELIVERED. PT CHANGED FROM OBS TO INPT TODAY.
[2020-12-14] MEDS: Gabapentin 300 MG CAPSULE 900 MG PO ×2 (14:53→20:53)
[2020-12-14 16:02] LABS: Glucose, Whole Blood 330 mg/dL (60-115)
[2020-12-14 20:43] LABS: Glucose, Whole Blood 305 mg/dL (60-115)
[2020-12-14] MEDS: diazePAM 10 MG TABLET PO (22:47)
[2020-12-14] MEDS: LORazepam 0.5 MG TABLET PO (22:51)
[2020-12-15] VITALS (11 sets, daily range): BP systolic 128–174; BP diastolic 60–82; PULSE 51–90; RESP 18; TEMP 36.3–37; O2SAT 96–98
[2020-12-15] MEDS: 0.9 % Sodium Chloride Flush 3 ML SYRINGE IVFLUSH (02:54)
[2020-12-15] MEDS: ceFAZolin Sodium/Dextrose,Iso 2 GM/50 ML PIGGYBACK IV ×2 (03:38→12:38)
[2020-12-15] MEDS: HYDROmorphone HCl/NS 10 MG/50 ML PIGGYBACK 2.5 MG IV (07:13)
[2020-12-15 07:56] LABS: Glucose, Whole Blood 247 mg/dL (60-115)
[2020-12-15] MEDS: Gabapentin 300 MG CAPSULE 900 MG PO (09:44)
[2020-12-15] MEDS: Morphine Sulfate ER 30 MG TABLET.ER PO (09:44)
[2020-12-15] MEDS: Memantine HCl 10 MG TABLET PO (09:44)
[2020-12-15] MEDS: Metoprolol Succinate ER 50 MG TAB.ER.24H PO (09:45)
[2020-12-15] MEDS: Donepezil HCl 10 MG TABLET PO (09:45)
[2020-12-15] MEDS: Atorvastatin Calcium 40 MG TABLET PO (09:45)
[2020-12-15] MEDS: buPROPion HCl XL 300 MG TAB.ER.24H PO (09:45)
[2020-12-15] MEDS: amLODIPine Besylate 5 MG TABLET PO (09:46)
[2020-12-15] MEDS: Insulin Lispro 100 UNIT/ML 3 ML VIAL SUBCUT ×2 (09:46→12:38)
[2020-12-15] MEDS: dexAMETHasone sod phosphate 4 MG/ML VIAL IVPUSH (09:46)
[2020-12-15 11:44] LABS: Glucose, Whole Blood 253 mg/dL (60-115)
--- NOTE | 2020-12-15 12:06 | P.PNIM_ITS ---
Subjective Subjective Date of Service: 12/15/20 Interval History: Pain control fair overnight with oral morphine(ER)and pulse dose Dilaudid. States current regimen is not controlling pain Review of Systems Denies chest pain Denies shortness of breath Denies nausea vomiting diarrhea Physical Exam Vital Signs: Vital Signs: Last Vital Signs Temp 98.0 F 12/15/20 11:18 Pulse 57 12/15/20 11:18 Resp 18 12/15/20 11:18 BP 148/82 H 12/15/20 11:18 Pulse Ox 98 12/15/20 11:18 Body Mass Index 27.9 Const: Other: Awake alert oriented x3. Appears comfortable HENMT: Other: Oropharynx moist clear Resp: Other: Clear to auscultation bilaterally Cardio: Other: No S4; positive S1-S2; no S3 murmurs or gallops GI: Other: Soft nontender nondistended with normoactive bowel sounds. There are no peritoneal signs Neuro: Other: Cranial nerves 2-12 are grossly intact as tested. Motor is 5/5 all extremities. Sensation is intact. Cognition appropriate Extrem: Other: No edema bilaterally. Left TMA Objective Data Active Medications Acetaminophen (Acetaminophen 325 Mg Tablet) 650 mg PO Q6H PRN PRN Reason: Pain, Mild (Pain Scale 1-3) Amlodipine Besylate (Amlodipine Besylate 5 Mg Tablet) 5 mg PO DAILY [facility]; Protocol Last Admin: 12/15/20 09:46 Dose: 5 mg Documented by: NESSA Atorvastatin Calcium (Atorvastatin Calcium 40 Mg Tablet) 40 mg PO DAILY [facility] Last Admin: 12/15/20 09:45 Dose: 40 mg Documented by: NESSA Bupropion HCl (Bupropion Hcl Xl 300 Mg Tab.Er.24h) 300 mg PO DAILY [facility] Last Admin: 12/15/20 09:45 Dose: 300 mg Documented by: NESSA Dexamethasone Sodium Phosphate (Dexamethasone Sod Phosphate 4 Mg/Ml Vial) 4 mg IVPUSH DAILY [facility] Last Admin: 12/15/20 09:46 Dose: 4 mg Documented by: NESSA Diazepam (Diazepam 10 Mg Tablet) 10 mg PO BEDTIME PRN PRN Reason: muscle spasm Last Admin: 12/14/20 22:47 Dose: 10 mg Documented by: GEORGE Donepezil HCl (Donepezil Hcl 10 Mg Tablet) 10 mg PO DAILY [facility] Last Admin: 12/15/20 09:45 Dose: 10 mg Documented by: NESSA Gabapentin (Gabapentin 300 Mg Capsule) 900 mg PO TID [facility] Last Admin: 12/15/20 09:44 Dose: 900 mg Documented by: NESSA Hydromorphone HCl (Hydromorphone Hcl 1 Mg/Ml Syringe) 1 mg IVPUSH Q4H PRN; Protocol PRN Reason: Pain, Severe (Pain Scale 7-10) Last Admin: 12/13/20 12:27 Dose: 1 mg Documented by: BARRY Cefazolin Sodium/Dextrose (Ancef) 2 gm in 50 mls @ 100 mls/hr IV Q8H [facility] Last Infusion: 12/15/20 04:35 Dose: 0 mls/hr Documented by: GEORGE Insulin Human Lispro (Insulin Lispro 100 Unit/Ml 3 Ml Vial) 0 unit SUBCUT QIDACHS [facility]; Protocol Last Admin: 12/15/20 09:46 Dose: 4 unit Documented by: NESSA Lorazepam (Lorazepam 0.5 Mg Tablet) 0.5 mg PO DAILY PRN PRN Reason: Anxiety Last Admin: 12/14/20 22:51 Dose: 0.5 mg Documented by: GEORGE Memantine (Memantine Hcl 10 Mg Tablet) 10 mg PO BID [facility] Last Admin: 12/15/20 09:44 Dose: 10 mg Documented by: NESSA Metoprolol Succinate (Metoprolol Succinate Er 50 Mg Tab.Er.24h) 50 mg PO DAILY [facility]; Protocol Last Admin: 12/15/20 09:45 Dose: 50 mg Documented by: NESSA Morphine Sulfate (Morphine Sulfate Er 30 Mg Tablet.Er) 30 mg PO TID [facility] Last Admin: 12/15/20 09:44 Dose: 30 mg Documented by: NESSA Naloxone HCl (Naloxone Hcl 0.4 Mg/Ml Vial) 0.2 mg IVPUSH Q2M PRN PRN Reason: Excessive sedation or RR < 8 Sodium Chloride (0.9 % Sodium Chloride Flush 3 Ml Syringe) 3 ml IVFLUSH QSHIFT [facility] Last Admin: 12/15/20 09:51 Dose: Not Given Documented by: NESSA Non-Admin Reason: IV Running Labs Labs: Laboratory Results - last 24 hr 12/14/20 12/14/20 12/14/20 11:53 15:53 20:32 POC Glucose 261 H 330 H 305 H 12/15/20 12/15/20 07:23 11:20 POC Glucose 247 H 253 H Assessment and Plan (1) DMII (diabetes mellitus, type 2): Status: Acute (2) S/P insertion of spinal cord stimulator: Status: Acute (3) Hx MRSA infection: Status: Acute Assessment and Plan: 65-year-old male admitted extended stay after spinal stimulator placement secondary to pain control. Pain control improved per pt. No other acute issues 1. Radicular pain: Improved. Will DC dilaudid dripping continue orals. Dr. Manuel to see today 2. History of MRSA Empiric Kefzol 2 g IV q.8 followed by oral dosing upon discharge 3. Diabetes type 2 requiring insulin Continue outpatient dosing and cover with sliding scale 4. PVD Will hold meloxicam/apixaban at this time. Restart upon discharge or as dictated by Dr. Manuel Full code/pneumatic boots Quality Stroke Does the patient have a stroke diagnosis?: No VTE Prior VTE?: No VTE Risk Level:: Medical - moderate - high VTE Device Contraindication: N/A - Device Ordered VTE Drug Contraindication: Treatment Not Indicated
--- NOTE | 2020-12-15 13:53 | MHC.CM.PN ---
PT CLEARED TO DC HOME TODAY WITH NO SERVICES PT TO SELF ARRANGE TRASPORT
--- NOTE | 2020-12-15 14:14 | MHC.CLN ---
NUTRITION VISITED WITH PATIENT ABOUT REPORTED WEIGHT LOSS. ATTRIBUTES WEIGHT LOSS TO DECREASE IN DRINKING ALCOHOL. REPORTS GOOD APPETITE AND INTAKE.
--- NOTE | 2020-12-15 15:35 | P.DS_ITS ---
DS: Providers Provider Date of Service: 12/15/20 Date of discharge: 12/15/20 Primary care physician: Unknown Physician DS: Diagnosis Discharge Diagnosis (1) DMII (diabetes mellitus, type 2): Status: Acute (2) S/P insertion of spinal cord stimulator: Status: Acute (3) Hx MRSA infection: Status: Acute DS: Summary Hospital Course Hospital Course: 65-year-old male status post insertion of spinal stimulator; postprocedure pain difficult to control.? Admitted extended stay for same.? No other acute complaints. Hospital stay CT scan done the LS spine demonstrated postop changes without evidence of hematoma. Patient was admitted overnight with oral morphine and pulsed on Dilaudid. In the morning Dr Manuel who recommended Dilaudid NUCLEAR ENGINEERING TECHNICIAN/decadron. Over next 48hr, pain control improved. On the day of discharge, NUCLEAR ENGINEERING TECHNICIAN d/c'd without incidence. Pt will be d/c'd to home on previous regimen. WIll f/up as outpatient Time Spent with Patient Time attestation: Total time spent providing and/or coordinating discharge services: Discharge coordination time: Greater than 30 minutes Quality: Stroke Does the patient have a stroke diagnosis?: No Physical Exam Vital Signs: Vital Signs: Last Vital Signs Temp 97.3 F 12/15/20 13:30 Pulse 60 12/15/20 13:30 Resp 18 12/15/20 13:30 BP 137/69 12/15/20 13:30 Pulse Ox 96 12/15/20 13:30 Body Mass Index 27.9 Const: Other: Awake alert oriented x3. Appears comfortable HENMT: Other: Oropharynx moist clear Resp: Other: Clear to auscultation bilaterally Cardio: Other: No S4; positive S1-S2; no S3 murmurs or gallops GI: Other: Soft nontender nondistended with normoactive bowel sounds. There are no peritoneal signs Neuro: Other: Cranial nerves 2-12 are grossly intact as tested. Motor is 5/5 all extremities. Sensation is intact. Cognition appropriate Extrem: Other: No edema bilaterally. Left TMA DS: Data Data Completed and Pending Labs on day of discharge: Laboratory Results - last 24 hr 12/14/20 12/14/20 12/15/20 15:53 20:32 07:23 POC Glucose 330 H 305 H 247 H 12/15/20 11:20 POC Glucose 253 H Discharge Plan Discharge Patient Disposition: Home Health Service Referrals: [facility] [Outside] - 1 Week Physician,Unknown J [Primary Care Provider] - 1 Week Discharge Medications: New dexamethasone [Decadron] 4 mg tablet See Rx Instructions .Route .COMPLEX Qty: 18 RF: 0 Continued bupropion HCl 150 mg tablet sustained-release 12 hr 1 tab PO BID RF: 0 donepezil 10 mg tablet 1 tab PO DAILY RF: 0 amlodipine 5 mg tablet 1 tab PO DAILY RF: 0 memantine 10 mg tablet 1 tab PO BID RF: 0 lorazepam 0.5 mg Tablet 0.5 mg PO DAILY PRN (Reason: Anxiety) RF: 0 apixaban 5 mg Tablet 5 mg PO BID RF: 0 gabapentin 600 mg tablet 600 mg PO TID RF: 0 atorvastatin 40 mg tablet 40 mg PO DAILY RF: 0 morphine 30 mg tablet 30 mg PO 5XD PRN (Reason: Breakthrough Pain) RF: 0 morphine 30 mg tablet extended release 30 mg PO TID RF: 0 diazepam 10 mg tablet 10 mg PO BEDTIME PRN (Reason: muscle spasm) RF: 0 metoprolol succinate 50 mg tablet extended release 24 hr 50 mg PO DAILY RF: 0 meloxicam 15 mg tablet 15 mg PO DAILY RF: 0 Discontinued cephalexin 500 mg tablet 1,000 mg PO Q8H 5 Days Qty: 30 RF: 0 No Action insulin aspart U-100 [Novolog U-100 Insulin aspart] 100 unit/mL solution See Rx Instructions .ROUTE .COMPLEX RF: 0 metformin 500 mg tablet extended release 24 hr 1 tab PO DAILY RF: 0 Tresiba FlexTouch U-200 200 unit/mL (3 mL) insulin pen 12 unit subcut BID RF: 0 folic acid 1 mg Tablet 1 mg PO DAILY RF: 0 Discharge Orders: Discharge Order (Routine); Ordered 12/15/20 Ordered By: Luis Reeves
[2020-12-15 16:12] LABS: Glucose, Whole Blood 319 mg/dL (60-115)
--- NOTE | 2020-12-17 13:37 | P.CNPAIN_ITS ---
Review of Systems Review of Systems: Denies chest pain Denies shortness of breath Denies nausea vomiting diarrhea PMFSH Past Medical History Medical History Back pain COVID-19 vaccine series completed Diabetic neuropathy Essential hypertension Former smoker Frontotemporal lobar degeneration Gout Hepatomegaly History of alcohol abuse History of amputation of toe Hx MRSA infection Hyperlipemia Low back pain MCI (mild cognitive impairment) with memory loss On beta glenn at home Osteoarthritis Osteomyelitis of lumbar spine Postlaminectomy syndrome PVD (peripheral vascular disease) Spinal stenosis Spinal stenosis of cervicothoracic region Type 2 diabetes mellitus Ulcer of left foot Vitamin D deficiency Surgical History History of back surgery History of lumbar laminectomy History of total left hip arthroplasty History of transmetatarsal amputation of left foot S/P insertion of spinal cord stimulator Social History Social History Are you a primary child care team lead to a significant other at home: No Do you presently have visiting nurse or other home services: No (had [facility]NA for Rx Foot ulcer) Patient Tobacco Use Status: Former Tobacco user Quit Date: years ago Tobacco use type: Cigarette Current occupational status: retired and disabled Physical Exam Vital Signs: Vital Signs: Last Vital Signs Temp 97.3 F 12/15/20 13:30 Pulse 60 12/15/20 13:30 Resp 18 12/15/20 13:30 BP 137/69 12/15/20 13:30 Pulse Ox 96 12/15/20 13:30 Body Mass Index 27.9 Const: General: cooperative, comfortable and no acute distress Chest: Chest palpation & inspection: normal inspection of the chest Resp: Effort & Inspection: normal respiratory effort, able to speak in complete sentences, normal respiratory pattern, no audible wheezes, no cough, respiratory effort not decreased and no grunting Cardio: Jugular venous distension: no JVD Back/Spine/Pelvis: Other: Demonstrates normal strength of bilateral lower extremities. Relative awkwardness of the left lower extremity may be explained by the fact of the transmetatarsal foot amputation. On the physical exam Gross strands 5/5 bilaterally. The reflexes are very sluggish patellar and Achilles as they were before the procedure. Probably is a result of laminectomy and significant epidural adhesions. Assessment and Plan (1) S/P insertion of spinal cord stimulator: Status: Acute (2) Spinal stenosis, lumbar: Status: Acute (3) Spinal stenosis of cervicothoracic region: Status: Acute (4) Low back pain: Status: Acute (5) Postlaminectomy syndrome: Status: Acute (6) Hx MRSA infection: Status: Acute Assessment and Plan: This patient is doing much better with spinal cord stimulator on. He regained his mobility. He reports 85% pain decrease. He reports better activities of daily living better social interactions. He does not want to remove the spinal cord stimulator lead because it provides him such a good pain relief. He reports that he would like to proceed with permanent implantation of spinal cord stimulator Nevro. We discussed the situation at hands. I explained to him that before putting spinal cord stimulator permanently into him I would need to remove the epidural spinal cord lead. I also will expedite the implantation of the spinal cord stimulator as much as I can. For now he is scheduled for visit in my office where the spinal cord stimulator lead will be removed. I might need to discuss the situation with his primary care physician who is sole prescriber under contract of opioid medications for this patient. I might request him to increase the doses of the opioids temporarily while we are waiting for the permanent implant.
== END 2020-12-15 17:39 | disposition home health service (06) ==
LOC: HO.SSS 15:56 → HO.IMC 17:44
PROVIDERS: Anesthesiology; PCP Internal Medicine; Visit Provider Hospitalist
PROC: (CPT 63650; principal; 2020-12-12 11:40)
DX: M96.1 Postlaminectomy syndrome, not elsewhere classified (principal); M54.59 Other low back pain; M46.26 Osteomyelitis of vertebra, lumbar region; M48.061 Spinal stenosis, lumbar region without neurogenic claudication; M48.03 Spinal stenosis, cervicothoracic region; Z86.14 Personal history of Methicillin resistant Staphylococcus aureus infection; Z96.89 Presence of other specified functional implants; M19.90 Unspecified osteoarthritis, unspecified site; I10 Essential (primary) hypertension; E11.40 Type 2 diabetes mellitus with diabetic neuropathy, unspecified; E66.9 Obesity, unspecified; F17.290 Nicotine dependence, other tobacco product, uncomplicated; F10.10 Alcohol abuse, uncomplicated; F12.90 Cannabis use, unspecified, uncomplicated; G30.9 Alzheimer's disease, unspecified; F02.80 Dementia in other diseases classified elsewhere, unspecified severity, without behavioral disturbance, psychotic disturbance, mood disturbance, and anxiety; Z89.422 Acquired absence of other left toe(s)
CPT/HCPCS: 63650 ×2; 72131; 82947; C1897; J0131; J0690; J1100; J1170; J2250; J2405; J3010

== ENCOUNTER → 2020-12-19 13:31 | Outpatient (BNVA) | payer MEDICARE, SELFPAY | PROVIDERS: PCP Internal Medicine; Visit Provider Anesthesiology ==

== ENCOUNTER → 2020-12-24 13:44 | Outpatient (BNVA) | payer MEDICARE, SELFPAY | PROVIDERS: PCP Internal Medicine; Visit Provider Anesthesiology | DX: M48.01 Spinal stenosis, occipito-atlanto-axial region (principal); M96.1 Postlaminectomy syndrome, not elsewhere classified; M54.59 Other low back pain; Z86.14 Personal history of Methicillin resistant Staphylococcus aureus infection | CPT/HCPCS: Q3014 ==

== ENCOUNTER 2020-12-29 13:04 | Outpatient (REF) | payer MEDICARE, SELFPAY ==
--- NOTE | ~2020-12-29 | XR_ITS ---
EXAMINATION: XR THORACOLUMBAR SPINE CLINICAL INFORMATION: Pre-MRI. Patient had stimulator removed. COMPARISON: None TECHNIQUE: 2 views of the thoracic spine FINDINGS: There is curvature of the lower thoracic spine to the left. Bone alignment is otherwise normal. There is multilevel degenerative spondylosis and degenerative disc disease of the mid and lower thoracic spine. No foreign body is seen. The paraspinal soft tissues are normal. XR/XR thoracic spine 2V IMPRESSION: No foreign body seen. Scoliosis and degenerative changes of the mid and lower thoracic spine.
--- NOTE | ~2020-12-29 | MR_ITS ---
EXAMINATION: MR THORACIC SPINE WITHOUT CONTRAST CLINICAL INFORMATION: Right-sided back pain. Bilateral lower extremity myelopathy. COMPARISON: Thoracic spine radiographs from 12/29/2020. CT lumbar spine from 12/12/2020. TECHNIQUE: MRI of the thoracic spine was obtained using routine sequences without contrast. FINDINGS: The previously demonstrated thoracic neural stimulator was better demonstrated on recent CT. Left convex curvature of the thoracolumbar junction. Minimal degenerative retrolisthesis of T11 on T12. Mild degenerative retrolisthesis of L2 on L3. Anterior wedge deformity of the L2 vertebral body without residual marrow edema (there is 60% loss of L2 anterior body height). To a lesser extent, there is also degenerative loss of T8-T12 vertebral body heights. Advanced multilevel degenerative disc disease from T9-L4. Moderate degenerative disc disease at all additional thoracic levels. Associated mixed Modic type discogenic endplate changes including minimal Modic type I discogenic edema from T6-L2. Mild marrow edema within the T12-L1 and L1-L2 facets consistent with degenerative stress reaction. No additional suspicious marrow edema. Moderate disc-osteophyte complex formation from T1-T4. Moderate posterior disc herniations from T7-T12. Prominent posterior disc-osteophyte complex formation from T12-L3. There is moderate multilevel facet joint arthropathy, most notably in the lower thoracic spine. There is mild to moderate neural foraminal stenosis from T3-T5. Moderate neural foraminal stenosis from T7-T10. Moderate to severe neural foraminal stenosis from T12-L1. There are mild neural foraminal stenosis is spinal canal stenoses from T1-T4. Moderate spinal canal stenosis at T7-T8. Mild spinal canal stenoses from T8-T10. Moderate spinal canal stenosis at T12-L1 and L1-L2. Changes of posterior decompression from from L2-L3. Within the limits of motion degradation, there appears to be small regions of myelomalacia within the spinal cord at the levels of T3-T4, T7-T8, and T12-L1. Moderate soft tissue edema within the paraspinal soft tissues from T12-L2. No discrete fluid collection. Limited evaluation of the intrathoracic structures without significant abnormalities. The descending thoracic aorta is of normal contour and caliber. MR/MR thoracic spine wo con IMPRESSION: Extensive multilevel degenerative spondyloarthropathy of the thoracic spine as described in detail above. Most notably, there are moderate spinal canal stenoses at T7-T8, T12-L1, and L1-L2. Mild spinal canal stenoses from T1-T4 and T8-T10. Moderate neural foraminal stenoses from T3-T5, T7-T10, and T12-L1. There appears to be regions of myelomalacia within the spinal cord at the levels of T3-T4, T7-T8, and T12-L1.
== END 2020-12-29 13:05 | disposition home or self-care (01) ==
LOC: HO.MRI 13:04
PROVIDERS: Visit Provider Anesthesiology
DX: M96.1 Postlaminectomy syndrome, not elsewhere classified (principal); M48.03 Spinal stenosis, cervicothoracic region; M48.061 Spinal stenosis, lumbar region without neurogenic claudication; M54.50 Low back pain, unspecified; Z96.89 Presence of other specified functional implants
CPT/HCPCS: 72070; 72146

== ENCOUNTER → 2021-01-05 12:07 | Outpatient (BNVA) | payer MEDICARE, SELFPAY | PROVIDERS: PCP Internal Medicine; Visit Provider Anesthesiology | DX: M54.59 Other low back pain (principal); M96.1 Postlaminectomy syndrome, not elsewhere classified; M48.03 Spinal stenosis, cervicothoracic region; Z86.14 Personal history of Methicillin resistant Staphylococcus aureus infection | CPT/HCPCS: Q3014 ==

== ENCOUNTER → 2021-02-11 10:26 | Outpatient (BNVA) | payer MEDICARE, SELFPAY | PROVIDERS: PCP Internal Medicine; Visit Provider Anesthesiology | DX: M96.1 Postlaminectomy syndrome, not elsewhere classified (principal); M54.9 Dorsalgia, unspecified; M48.03 Spinal stenosis, cervicothoracic region; Z86.14 Personal history of Methicillin resistant Staphylococcus aureus infection | CPT/HCPCS: 99212 ==